=== PATIENT | male | born 1960 | race Caucasian/White ===

== ENCOUNTER 2016-12-10 07:13 | Emergency (ER) | payer BC ==
[2016-12-10 07:37] VITALS: BP 129/86
--- NOTE | 2016-12-10 07:43 | UC ---
Lower Extremity/Ankle HPI - HPI Summary HPI Summary: The patient comes in today for: 1. "My foot and calf are blowing up:" Onset: 5 hours ago. Palliative/provocative: Nothing makes his symptoms makes it better or worse, except being on his feet makes it worse. Quality: Sharp Region: Back of the left leg. Severity: 2/10 at rest. He states 10/10 when he steps on it, but he walked in good. Time: Comes and goes. Associated symptoms: Injury: None. He had cellulitis in the leg 6-7 years ago. 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 - Allergies/Home Medications Allergies/Adverse Reactions: Allergies Allergy/AdvReac Type Severity Reaction Status Date / Time No Known Allergies Allergy Verified 12/10/16 07:31 PMH/Surg Hx/FS Hx/Imm Hx Previously Healthy: Yes Endocrine History Of: Denies: Diabetes, Thyroid Disease, Hyperthyroidism, Hypothyroidism, Dyslipidemia Cardiovascular History Of: Denies: Cardiac Disorders, Hypertension, Pacemaker/ICD, Myocardial Infarction , Congestive Heart Failure, Atrial Fibrillation, Deep Vein Thrombosis, Bleeding Disorders Respiratory History Of: Denies: COPD, Asthma, Bronchitis, Pneumonia, Pulmonary Embolism GI/ History Of: Denies: Gastroesophageal Reflux, Ulcer, Gastrointestinal Bleed, Gall Bladder Disease, Kidney Stones, Diverticulitis, Renal Disease, Urosepsis Neurological History Of: Denies: TIA, CVA, Dementia, Seizures, Migraine Psychological History Of: Denies: Anxiety, Depression, Bipolar Disorder, Schizophrenia, Post Traumatic Stress Disorder Cancer History Of: Denies: Lung Cancer, Colorectal Cancer, Breast Cancer, Prostate Cancer, Cervical Cancer Other History Of: Negative For: HIV, Hepatitis B, Hepatitis C, Anticoagulant Therapy - Surgical History Surgical History: Yes Surgery Procedure, Year, and Place: APPENDECTOMY, CATARATS - Family History Known Family History: Positive: Hypertension Negative: Cardiac Disease - Social History Occupation: Employed Full-time Alcohol Use: Occasionally Substance Use Type: None Smoking Status (MU): Heavy Every Day Tobacco Smoker Amount Used/How Often: 1.5 PPD Have You Smoked in the Last Year: Yes Household Exposure Type: Cigarettes - Immunization History Most Recent Influenza Vaccination: not this season Review of Systems Constitutional: Negative Skin: Rash Eyes: Negative ENT: Negative Respiratory: Negative Cardiovascular: Negative Gastrointestinal: Negative Genitourinary: Negative Musculoskeletal: Arthralgia, Myalgia All Other Systems Reviewed And Are Negative: Yes Physical Exam Triage Information Reviewed: Yes Appearance: Well-Appearing, No Pain Distress, Well-Nourished Vital Signs: Initial Vital Signs Temp 99.5 F 12/10/16 07:31 Pulse 101 12/10/16 07:31 Resp 18 12/10/16 07:31 BP 129/86 12/10/16 07:31 Pulse Ox 100 12/10/16 07:31 Vital Signs Reviewed: Yes Eyes: Positive: Conjunctiva Clear. Negative: Discharge ENT: Positive: Hearing grossly normal. Negative: Pharyngeal erythema, Nasal congestion, Nasal drainage, TM bulging, TM dull, TM red, Tonsillar swelling, Tonsillar exudate Dental: Negative: Gross Decay/Caries @, Dental Fracture @ Neck: Positive: Supple, Nontender, No Lymphadenopathy. Negative: Nuchal Rigidity Respiratory: Positive: Chest non-tender, Lungs clear, No respiratory distress, No accessory muscle use. Negative: Crackles, Wheezing Cardiovascular: Positive: RRR, No Murmur Abdomen Description: Positive: Nontender, No Organomegaly, Soft. Negative: Distended, Guarding Musculoskeletal: Positive: Edema @, Other: - The left lower leg has edema particularly around the lower half where there are a few breaks in the skin and erythema and tenderness. HE has breaks in the skin around the heel from a scaling rash. There is a depression along the Achilles tendon which may be where the leg edema starts (sock line). However with compression of the calf muscles, there is minimal movement of the foot compared to the right. Calf circumference 29 cm superior to the lateral malleolus: 33.5 cm on the left and 32 cm on the right. Neurological: Positive: Alert, Muscle Tone Normal Psychological: Positive: Normal Response To Family, Age Appropriate Behavior Skin: Negative: rashes, breakdown Diagnostics - Radiology No standard instances Xray Interpretation: Positive (See Comments) - There was only thickening of the superficial vein in the area suspected to have cellulitis. No problems outside of that area. The Achilles tendon was intact. Lower Extremity Course/Dx - Differential Dx/Diagnosis Provider Diagnoses: Cellulitis of the lower left leg. Discharge - Discharge Plan Condition: Stable Disposition: HOME Patient Education Materials: Cellulitis (ED) Forms: *Work Release Referrals: No Primary Care Phys,NOPCP [Primary Care Provider] - 3 Days (Please see your primary care provider later this week. If you don't have a primary care provider, please reference the included sheet of local provider. If you get worse, please be seen sooner.) Additional Instructions: Please keep the foot elevated, apply hot compresses (as hot as can be tolerated without burning the skin) for 20 minutes at a time--4-5 times a day.
--- NOTE | 2016-12-10 09:23 | RAD ---
Indication: LEFT calf and ankle pain new onset today without proceeding injury. Comparison: None. Technique: Ultrasound of the LEFT Achilles tendon and ultrasound of the RIGHT Achilles tendon for comparison. Report: The noninsertional and insertional segments of the LEFT Achilles tendon are normal and symmetric with the RIGHT. There is significant subcutaneous edema superficial to the LEFT Achilles tendon asymmetric with the contralateral side. Corresponding with the region of swelling there is segmental nonocclusive thrombosis and mural thickening of a superficial vein. The vein is patent both proximal and distal to the affected segment. IMPRESSION: Nonocclusive SVT posterior inferior segment LEFT lower leg/ankle.
== END 2016-12-10 09:59 | disposition home or self-care (01) ==
LOC: UCCORT 07:13
DX: L03.116 Cellulitis of left lower limb (principal); F17.210 Nicotine dependence, cigarettes, uncomplicated
CPT/HCPCS: 99212; G0463